=== PATIENT | female | born 1990 | race Caucasian/White ===

== ENCOUNTER 2020-08-31 21:06 | Day surgery (SDC) | payer MEDICAID ==
[2020-08-31] MEDS ORDERED: hydrALAZINE 20 MG/ML VIAL SLOW IVP PRN (22:00)
[2020-08-31 22:06] VITALS: BMI 53.2
[2020-08-31 22:25] LABS: Amnisure Test No Membranes Rupture (No Rupture)
== END 2020-09-01 02:40 | disposition home or self-care (01) ==
LOC: CSHERS 21:06 → CSHLD/OP 21:06
PROVIDERS: ATTEND Obstetrics & Gynecology
DX: O47.1 False labor at or after 37 completed weeks of gestation (principal); O99.213 Obesity complicating pregnancy, third trimester; E66.01 Morbid (severe) obesity due to excess calories; O99.820 Streptococcus B carrier state complicating pregnancy; O09.33 Supervision of pregnancy with insufficient antenatal care, third trimester; Z3A.38 38 weeks gestation of pregnancy
CPT/HCPCS: 84112; 99284

== ENCOUNTER 2020-09-02 22:10 | Day surgery (SDC) | payer MEDICAID ==
[2020-09-02] MEDS ORDERED: hydrALAZINE 20 MG/ML VIAL SLOW IVP PRN (23:37)
[2020-09-02 23:40] VITALS: BMI 53.1
[2020-09-02] MEDS ORDERED: Ondansetron ODT 4 MG TAB SL SCH (23:45)
[2020-09-02] MEDS ORDERED: Acetaminophen 500 MG TAB PO SCH (23:45)
[2020-09-03] MEDS ORDERED: Morphine 10 MG/ML CARPUJECT IM SCH (00:45)
[2020-09-03] MEDS ORDERED: Promethazine HCl 25 MG/ML VIAL IM SCH (00:45)
[2020-09-03 10:29] LABS: SARS-CoV-2 NAA Rapid Test Not Detected (NotDetected)
== END 2020-09-03 04:15 | disposition home or self-care (01) ==
LOC: CSHLD/OP 22:10
PROVIDERS: ATTEND Obstetrics & Gynecology
DX: O47.1 False labor at or after 37 completed weeks of gestation (principal); O99.891 Other specified diseases and conditions complicating pregnancy; M54.9 Dorsalgia, unspecified; O99.213 Obesity complicating pregnancy, third trimester; E66.01 Morbid (severe) obesity due to excess calories; O09.33 Supervision of pregnancy with insufficient antenatal care, third trimester; O09.293 Supervision of pregnancy with other poor reproductive or obstetric history, third trimester; Z3A.38 38 weeks gestation of pregnancy
CPT/HCPCS: 99284; J2270; J2550; Q0162; U0002

== ENCOUNTER 2020-09-07 18:56 | Inpatient (IN) | payer MEDICAID, OTHER ==
[~2020-09-07 18:56] MED LIST: Lidocaine 2% MPF 10 ML AMP (For Epidural Use) ONE
[2020-09-07] MEDS ORDERED: Ondansetron PF 4 MG/2 ML Vial IVP PRN ×2 (20:05→23:21)
[2020-09-07] MEDS ORDERED: hydrALAZINE 20 MG/ML VIAL SLOW IVP PRN (20:05)
[2020-09-07] MEDS ORDERED: Ibuprofen 800 MG TAB PO PRN (20:05)
[2020-09-07] MEDS ORDERED: Promethazine HCl 25 MG/ML VIAL IM PRN ×2 (20:05→23:21)
[2020-09-07] MEDS ORDERED: Misoprostol 200 MCG TAB PR PRN (20:05)
[2020-09-07] MEDS ORDERED: Acetaminophen 500 MG TAB PO PRN (20:05)
[2020-09-07] MEDS ORDERED: Methylergonovine 0.2 MG/ML VIAL IM PRN (20:05)
[2020-09-07] MEDS ORDERED: Butorphanol Tartrate 1 MG/ML VIAL SLOW IVP PRN (20:05)
[2020-09-07] MEDS ORDERED: Carboprost 250 MCG/ML AMP IM PRN (20:05)
[2020-09-07] MEDS ORDERED: Lidocaine 1% (PF) 30 ML VIAL SC PRN (20:05)
[2020-09-07] MEDS ORDERED: NS w/ Oxytocin 30 units 500 ML IVPB SCH (20:15)
[2020-09-07] MEDS ORDERED: Lactated Ringer's 1,000 ML IV SCH (20:15)
[2020-09-07] MEDS ORDERED: Penicillin G Potassium 5 MILL.UNITS in Sodium Chloride 0.9% 100 ML IVPB SCH (20:15)
[2020-09-07] MEDS ORDERED: NS w/ Oxytocin 30 units 500 ML IV SCH (20:15)
[2020-09-07 22:11] VITALS: BMI 60.3
[2020-09-07] MEDS ORDERED: diphenhydrAMINE 50 MG CAP PO SCH (22:15)
[2020-09-07 23:07] LABS: Hemoglobin 11.1 g/dL (12.0-15.5); Mean Corpuscular HGB CONC 32.5 g/dL (32.0-36.0); Mean Corpuscular Hemoglobin 28.2 pg (27.0-33.0); Mean Corpuscular Volume 86.8 fl (81.6-98.3); Mean Platelet Volume 10.6 fl (7.4-10.4); Platelet Count 258 10x3/uL (150-450); RBC Distribution Width 13.6 % (11.5-14.5); Red Blood Cell (RBC) Count 3.94 10x6/uL (3.90-5.03); White Blood Cell (WBC) Count 10.6 10x3/uL (3.5-10.5)
[2020-09-07] MEDS ORDERED: Naloxone HCl 0.4 mg/ml Vial IVP PRN ×2 (23:21)
[2020-09-07] MEDS ORDERED: Lactated Ringer's 500 ML IV PRN (23:21)
[2020-09-07] MEDS ORDERED: Acetaminophen 325 MG TAB PO PRN (23:21)
[2020-09-07] MEDS ORDERED: ePHEDrine 50 MG/ML VIAL SLOW IVP PRN (23:21)
[2020-09-07] MEDS ORDERED: diphenhydrAMINE 50 MG/ML VIAL IVP PRN (23:21)
[2020-09-07] MEDS ORDERED: Eucerin (Mineral Oil/Petrolatum,White) 30 gm Jar TOP PRN (23:21)
[2020-09-07] MEDS ORDERED: Communication Order-Pharmacy FS SCH (23:30)
[2020-09-07] MEDS ORDERED: Fentanyl 4 mcg/Bupivacaine 0.1% Cassette 100 ML EPIDURAL SCH (23:30)
[2020-09-07 23:41] LABS: Hep B Surf Ag Non-Reactive S/CO (NonReactive); Syphilis Antibody Nonreactive (Nonreactive); Syphilis Antibody Index 0.09 S/CO (<1.00 Non-Reactive)
[2020-09-07] MEDS ORDERED: diphenhydrAMINE 50 MG/ML VIAL IVP SCH (23:45)
[2020-09-08 00:05] LABS: HBSAg Index 0.17 S/CO (0-0.99)
[2020-09-08] MEDS: Penicillin G 2.5 MILL.units 2.5 MILL.UNITS in Premix Bag 1 BAG IVPB SCH ×3 (03:20→13:16)
[2020-09-08] MEDS ORDERED: Fentanyl 4 mcg/Bup 0.1% Cadd 100 ML ONE ×2 (05:49→13:51)
[2020-09-08] MEDS ORDERED: Ondansetron PF 4 MG/2 ML Vial IVP PRN (06:40)
[2020-09-08] MEDS ORDERED: diphenhydrAMINE 50 MG/ML VIAL IVP PRN (06:40)
[2020-09-08] MEDS ORDERED: Naloxone HCl 0.4 mg/ml Vial IVP PRN ×2 (06:40)
[2020-09-08] MEDS ORDERED: Lactated Ringer's 500 ML IV PRN (06:40)
[2020-09-08] MEDS ORDERED: Eucerin (Mineral Oil/Petrolatum,White) 30 gm Jar TOP PRN (06:40)
[2020-09-08] MEDS ORDERED: Fentanyl 4 mcg/Bupivacaine 0.1% Cassette 100 ML EPIDURAL SCH (06:45)
[2020-09-08] MEDS ORDERED: Communication Order-Pharmacy FS SCH (06:45)
[2020-09-08] MEDS ORDERED: Lanolin Ointment 7 GM TUBE TOP PRN (16:54)
[2020-09-08] MEDS ORDERED: hydrALAZINE 20 MG/ML VIAL SLOW IVP PRN (16:54)
[2020-09-08] MEDS ORDERED: Bisacodyl 10 MG SUPP PR PRN (16:54)
[2020-09-08] MEDS ORDERED: Milk Of Magnesia 30 ML UDCUP PO PRN (16:54)
[2020-09-08] MEDS ORDERED: Adacel (T-DAP) 0.5 ML SYRINGE IM ONE (16:54)
[2020-09-08] MEDS ORDERED: ePHEDrine Sulfate 50 MG/10 ML VIAL SLOW IVP PRN (17:15)
[2020-09-08] MEDS ORDERED: Hydrocerin (Eucerin) Cream 120 gm Jar TOP PRN (17:15)
[2020-09-08] MEDS: Ibuprofen 800 MG TAB PO SCH (18:31)
[2020-09-08] MEDS: Acetaminophen 325 MG TAB PO PRN ×2 (18:32→22:21)
[2020-09-08] MEDS: Ferrous Sulfate 325 MG TAB PO SCH (20:30)
[2020-09-08] MEDS: Docusate Calcium (SURFAK) 240 MG CAP PO SCH (22:00)
[2020-09-09] MEDS: Ibuprofen 800 MG TAB PO SCH ×3 (02:09→18:07)
[2020-09-09] MEDS: Acetaminophen 325 MG TAB PO PRN ×4 (05:22→20:15)
[2020-09-09] MEDS ORDERED: Acetaminophen/Codeine 30-300mg Tablet PO SCH (08:00)
[2020-09-09] MEDS: Ferrous Sulfate 325 MG TAB PO SCH ×2 (08:05→17:15)
[2020-09-09] MEDS: Docusate Calcium (SURFAK) 240 MG CAP PO SCH (08:22)
[2020-09-09] MEDS: Prenatal Vitamin 1 TAB PO SCH (08:22)
[2020-09-09] MEDS ORDERED: FLUoxetine HCl 10 MG CAP PO SCH (10:00)
[2020-09-09] MEDS ORDERED: FLUoxetine HCl 20 MG CAP PO SCH (10:15)
[2020-09-09] MEDS: busPIRone HCl 5 MG TAB PO SCH (20:15)
[2020-09-10] MEDS: Acetaminophen 325 MG TAB PO PRN ×3 (01:32→20:02)
[2020-09-10] MEDS ORDERED: diphenhydrAMINE 25 MG CAP PO PRN (02:08)
[2020-09-10] MEDS: Ibuprofen 800 MG TAB PO SCH ×3 (03:16→21:02)
[2020-09-10] MEDS: Docusate Calcium (SURFAK) 240 MG CAP PO SCH ×3 (05:32→21:04)
[2020-09-10] MEDS: FLUoxetine HCl 20 MG CAP PO SCH (08:25)
[2020-09-10] MEDS: busPIRone HCl 5 MG TAB PO SCH ×2 (08:25→21:03)
[2020-09-10] MEDS: Prenatal Vitamin 1 TAB PO SCH (08:25)
[2020-09-10] MEDS: Ferrous Sulfate 325 MG TAB PO SCH ×2 (08:26→16:46)
[2020-09-10] MEDS ORDERED: Ondansetron ODT 8 MG TAB SL SCH (10:00)
[2020-09-10 11:16] LABS: #Eosinphils 0.2 10x3/uL (0.0-0.5); #Monocytes 0.7 10x3/uL (0.0-1.1); #Neutrophils 4.6 10x3/uL (1.5-8.4); %Basophils 0.3 % (0.0-2.0); %Eosinophils 1.9 % (0.0-6.0); %Lymphocytes 37.2 % (18.0-47.0); %Monocytes 7.5 % (0.0-10.0); %Neutrophils 52.6 % (40.0-75.0); Hemoglobin 9.9 g/dL (12.0-15.5); Mean Corpuscular HGB CONC 32.2 g/dL (32.0-36.0); Mean Corpuscular Hemoglobin 28.1 pg (27.0-33.0); Mean Corpuscular Volume 87.2 fl (81.6-98.3); Mean Platelet Volume 9.6 fl (7.4-10.4); Platelet Count 203 10x3/uL (150-450); RBC Distribution Width 13.9 % (11.5-14.5); Red Blood Cell (RBC) Count 3.52 10x6/uL (3.90-5.03); White Blood Cell (WBC) Count 8.8 10x3/uL (3.5-10.5)
[2020-09-10] MEDS: Promethazine HCl 25 MG/ML VIAL IM PRN (13:48)
[2020-09-11] MEDS: Acetaminophen 325 MG TAB PO PRN ×2 (00:35→10:49)
[2020-09-11] MEDS: Ibuprofen 800 MG TAB PO SCH (05:12)
[2020-09-11] MEDS: Ferrous Sulfate 325 MG TAB PO SCH ×2 (08:03→08:45)
[2020-09-11] MEDS: Penicillin G 2.5 MILL.units 2.5 MILL.UNITS in Premix Bag 1 BAG IVPB SCH (08:05)
[2020-09-11 08:26] VITALS: BP 132/60; TEMP 98
[2020-09-11] MEDS: busPIRone HCl 5 MG TAB PO SCH (08:43)
[2020-09-11] MEDS: FLUoxetine HCl 20 MG CAP PO SCH (08:43)
[2020-09-11] MEDS: Docusate Calcium (SURFAK) 240 MG CAP PO SCH ×2 (08:43→08:46)
[2020-09-11] MEDS: Prenatal Vitamin 1 TAB PO SCH (08:44)
[2020-09-11] MEDS: Promethazine HCl 25 MG/ML VIAL IM PRN (10:50)
== END 2020-09-11 12:45 | disposition home or self-care (01) | DRG 807 ==
LOC: CSHLD 18:56 → EEVIPCON 18:56 → CSHPP 09-08 21:52
PROVIDERS: ADMIT Family Medicine; ATTEND Family Medicine
PROC: 10E0XZZ Delivery of Products of Conception, External Approach (ICD-10-PCS; principal; 2020-09-08)
PROC: 10907ZC Drainage of Amniotic Fluid, Therapeutic from Products of Conception, Via Natural or Artificial Opening (ICD-10-PCS; 2020-09-08)
PROC: 3E0P7VZ Introduction of Hormone into Female Reproductive, Via Natural or Artificial Opening (ICD-10-PCS; 2020-09-08)
PROC: 3E033VJ Introduction of Other Hormone into Peripheral Vein, Percutaneous Approach (ICD-10-PCS; 2020-09-08)
DX: O99.824 Streptococcus B carrier state complicating childbirth (principal); Z37.0 Single live birth; O99.214 Obesity complicating childbirth; E66.01 Morbid (severe) obesity due to excess calories; O99.344 Other mental disorders complicating childbirth; F41.9 Anxiety disorder, unspecified; F32.9 Major depressive disorder, single episode, unspecified; Z3A.39 39 weeks gestation of pregnancy; Z20.822 Contact with and (suspected) exposure to COVID-19; Z90.49 Acquired absence of other specified parts of digestive tract; O90.89 Other complications of the puerperium, not elsewhere classified; R51.9 Headache, unspecified
CPT/HCPCS: 36415; 51702; 85025; 85027; 86780; 86850; 86900; 86901; 87340; J1200; J2405; J2540; J2550; J2590; J3490; Q0162; Q0163

== ENCOUNTER 2022-11-19 17:15 | Emergency (ER) | payer OTHER | END 2022-11-19 18:40 | disposition left against medical advice (07) | LOC: CSHERS 17:15 | DX: Z53.21 Procedure and treatment not carried out due to patient leaving prior to being seen by health care provider (principal) | CPT/HCPCS: 93005 ==

== ENCOUNTER 2023-10-28 20:05 | Emergency (ER) | payer OTHER, SELFPAY ==
[2023-10-28 20:40] LABS: Bilirubin Neg (Negative); Blood, Urine 10 (Negative); Clarity Clear (Clear); Glucose, Urine (Dipstick) Normal (Negative); Ketone, Urine Negative (Negative); Leukocyte Negative (Negative); Nitrite Negative (Negative); Protein, Urine (Dipstick) Negative (Neg-Trace); Specific Gravity, Urine 1.025 (1.005-1.030); Urobilinogen Normal mg/dL (Less than 2)
[2023-10-28 20:43] LABS: Pregnancy Test - Urine (BHCG) Negative (Negative); Pregu Control Background? CLEAR/WHITE (CLR/WHITE); Pregu Control Bar Appear? YES (CONTROL BAR); Specific Gravity 1.025 (1.002-1.036)
[2023-10-28 20:52] LABS: Bacteria/HPF 2+ HPF (None Seen); CAUTI Indications for Culture Pelvic or flank pain; Mucous/LPF 2+ LPF (<2+); RBC/HPF 0-3 HPF (0-3); WBC/HPF 0-3 HPF (0-3)
[2023-10-28 20:53] LABS: Urine Culture Reflex No No
[2023-10-28] MEDS ORDERED: Ketorolac Tromethamine 30 MG (1 mL) VIAL ONE (21:04)
[2023-10-28 21:56] LABS: Anion Gap 11 mmol/L (10-20); BUN (Urea Nitrogen) 14 mg/dL (7.0-18.7); Calc. Creatinine Clearance 0 mL/min (70-130); Calcium 8.9 mg/dL (7.8-10.44); Carbon Dioxide 23 mmol/L (22-29); Chloride 108 mmol/L (98-107); Estimated GFR 114; Glucose 87 mg/dL (70-105); Potassium 3.9 mmol/L (3.5-5.1); Sodium 138 mmol/L (136-145)
[2023-10-28 21:57] LABS: #Basophils 0.07 10x3/uL (0.0-0.2); #Eosinphils 0.42 10x3/uL (0.0-0.5); #Monocytes 0.64 10x3/uL (0.0-1.1); #Neutrophils 4.68 10x3/uL (1.5-8.4); %Basophils 0.8 % (0.0-2.0); %Lymphocytes 30.4 % (18.0-47.0); %Monocytes 7.7 % (0.0-10.0); Hematocrit 40.5 % (34.9-44.5); Hemoglobin 13.5 g/dL (12.0-15.5); Mean Corpuscular HGB CONC 33.3 g/dL (32.0-36.0); Mean Corpuscular Hemoglobin 29.6 pg (27.0-33.0); Mean Corpuscular Volume 88.8 fL (81.6-98.3); Mean Platelet Volume 9.2 fL (7.4-10.4); Platelet Count 221 10x3/uL (150-450); RBC Distribution Width 13.6 % (11.5-14.5); Red Blood Cell (RBC) Count 4.56 10x6/uL (3.90-5.03); White Blood Cell (WBC) Count 8.4 10x3/uL (3.5-10.5)
== END 2023-10-28 23:35 | disposition home or self-care (01) ==
LOC: CSHERS 20:05
DX: R53.1 Weakness (principal); F17.210 Nicotine dependence, cigarettes, uncomplicated
CPT/HCPCS: 74176; 80048; 81001; 81025; 83605; 85025; 93005; 96374; J1885